=== PATIENT | male | born 1985 | race Caucasian/White ===

== ENCOUNTER 2020-05-01 08:59 | Outpatient (RCR) | payer BC, SELFPAY ==
[2020-05-01 09:17] VITALS: BMI 40.8
[2020-05-01 09:18] VITALS: BMI 40.8
== END 2020-07-26 12:46 | disposition home or self-care (01) ==
LOC: ANHDMC 08:59
PROVIDERS: PCP Internal Medicine; Visit Provider Nurse Practitioner
DX: E11.9 Type 2 diabetes mellitus without complications (principal); Z71.3 Dietary counseling and surveillance
CPT/HCPCS: 97802

== ENCOUNTER 2022-07-03 09:15 | Outpatient (CLI) | payer BC, SELFPAY ==
[2022-07-03 11:29] LABS: Liquefaction Semen Complete in 30 min. (<30 minutes); Semen Color Opaque (Grey-opaque); Semen Progressive Motility 10 % (>32); Semen Viscosity Not Increased (Not Increa.); Volume Semen 3 mL (1.5-5.0)
[2022-07-03 11:30] LABS: Semen Immotility 70 %; Semen Morphology Result to Follow; Semen Non-Progressive Motility 20 %; Semen Total Motility 30 (>40% (PM+NP)); Sperm Count 5.3 Mil/mL (60-150 million/mL)
[2022-07-07 10:39] LABS: Testosterone Total 354 ng/dL (250-1100)
[2022-07-08 22:03] LABS: Fructose, Semen 184 mg/dL (150-600)
== END 2022-07-03 09:16 | disposition home or self-care (01) ==
LOC: CHSLAB 09:22
PROVIDERS: PCP Hospitalist; Visit Provider Hospitalist
DX: N46.9 Male infertility, unspecified (principal)
CPT/HCPCS: 36415; 82671; 82757; 84403; 88160; 89320

== ENCOUNTER 2023-04-27 17:33 | Emergency (ER) | payer BC, SELFPAY ==
[2023-04-27 17:38] VITALS: BP 130/95; PULSE 104; RESP 20; TEMP 36.9; O2SAT 100
--- NOTE | 2023-04-27 17:40 | ED.URI ---
HPI - URI/Sore Throat General Chief Complaint: Upper Respiratory Infection Stated Complaint: congestion/can't hear Source: patient and RN notes reviewed History of Present Illness HPI Narrative: 37 yo M presents to urgent care with complaints of congestion, left ear pressure and pain and hard of hearing out of left ear, cough, body aches, and HUSTON. Reports sore throat. Reports nausea, loss of appetite, and diarrhea. Pt states these symptoms started on Thursday. Denies any fevers, chills, vomiting, or abdominal pain. Related Data Home Medications Medication Instructions Recorded Confirmed pantoprazole 40 mg tablet,delayed 40 mg PO DAILY 04/04/20 04/27/23 release bupropion HCl 300 mg 24 hr tablet, 300 mg PO DAILY 04/27/23 04/27/23 extended release clomiphene citrate 50 mg tablet 50 mg PO DAILY 04/27/23 04/27/23 (Clomid) dapagliflozin propaned 10 tablet PO DAILY 04/27/23 mg-metformin ER 1,000 mg tablet,ext rel 24hr (Xigduo XR) dulaglutide 3 mg/0.5 mL mg subcut 04/27/23 subcutaneous pen injector (Trulicity) ergocalciferol (vitamin D2) 1,250 1,250 mcg PO WEEKLY 04/27/23 04/27/23 mcg (50,000 unit) capsule ezetimibe 10 mg tablet 10 mg PO DAILY 04/27/23 04/27/23 levothyroxine 25 mcg tablet 25 mcg PO DAILY 04/27/23 04/27/23 lisdexamfetamine 50 mg capsule mg 04/27/23 (Vyvanse) montelukast 10 mg tablet 10 mg PO DAILY 04/27/23 04/27/23 pantoprazole 40 mg tablet,delayed mg PO 04/27/23 release sildenafil (pulm.hypertension) 20 20 mg PO DIRECTED PRN 04/27/23 04/27/23 mg tablet Hypertension Allergies Allergy/AdvReac Type Severity Reaction Status Date / Time cefaclor Allergy Unknown hives Verified 04/27/23 17:42 levofloxacin [From Levaquin] Allergy Joint Pain Verified 04/27/23 17:42 Review of Systems Review of Systems: Pertinent positives and pertinent negatives per HPI. [facility] Past Medical History Medical History (Updated 04/27/23 @ 17:51 by Odalys Sapp APRN) Alcoholic pancreatitis Allergies Anxiety Depression Diabetes GERD (gastroesophageal reflux disease) Headache, migraine HTN (hypertension) Sleep apnea Vasculitis Family History Family History (Updated 04/04/20 @ 08:14 by Justine Bowser [facility]) Mother Rheumatoid arthritis Scleroderma Social History Social History (Updated 04/04/20 @ 08:03 by Justine Bowser [facility]) Smoking status: Former smoker Alcohol intake: former Gender identity (if verbalized by the patient): Male Spiritual care concerns: No Comments At the time of my signature, I reviewed and agree with the nursing past medical, surgical, social, and family history. There is no relevant family history pertinent to the patient complaint. Exam Narrative: GENERAL: This is a well-nourished, well-developed patient, in no apparent distress. HEAD: normocephalic, atraumatic. EYES: Sclera clear/white. Vision is grossly intact. EARS: External ears normal, auditory canals clear and without drainage, right TM normal without perforation. Left TM bulging and erythremic. NOSE:congested THROAT: Mucous membranes moist, posterior pharynx clear. NECK: Neck supple, non-tender without lymphadenopathy, masses or thyromegaly. CARDIOVASCULAR: Regular rate and rhythm without murmurs, gallops, or rubs. RESPIRATORY: Clear to auscultation. Breath sounds equal bilaterally. No wheezes, rales, or rhonchi. GASTROINTESTINAL: Abdomen soft, non-tender, nondistended. Bowel sounds are active. No hepato-splenomegaly, or palpable masses. No guarding. SKIN: warm, intact with no suspicious lesions or rash, good texture and turgor. NEURO: awake, alert, and oriented to person, place and time. There were no obvious focal neurologic abnormalities. Course Course Level of Care: Express Care Visit Vital Signs Vital signs: Reviewed MDM - URI/Sore Throat MDM Narrative Medical decision making narrative: Take antibiotics as directed. May given ibuprofen and/or Tylenol as needed for
[2023-04-27 17:49] VITALS: BP 130/95; PULSE 104; RESP 20; TEMP 36.9; O2SAT 100
== END 2023-04-27 18:01 | disposition home or self-care (01) ==
PROVIDERS: Emergency Provider Nurse Practitioner Family; PCP Hospitalist
DX: B34.9 Viral infection, unspecified (principal); H66.92 Otitis media, unspecified, left ear; J32.9 Chronic sinusitis, unspecified; E11.9 Type 2 diabetes mellitus without complications; K21.9 Gastro-esophageal reflux disease without esophagitis; I10 Essential (primary) hypertension; F41.9 Anxiety disorder, unspecified; F32.A Depression, unspecified
CPT/HCPCS: 99213; G0463

== ENCOUNTER 2024-11-28 14:28 | Emergency (ER) | payer BC, SELFPAY ==
[2024-11-28 14:39] VITALS: BP 157/107; PULSE 98; RESP 16; TEMP 37; O2SAT 99
--- NOTE | 2024-11-28 15:16 | ED_ITS ---
HPI - URI/Sore Throat General Chief Complaint: Upper Respiratory Infection Stated Complaint: Sinus Problem Time Seen by Provider: 11/28/24 15:16 Source: patient Mode of arrival: ambulatory Limitations: no limitations History of Present Illness HPI Narrative: 38-year-old male presents with complaint of sinus congestion, pressure, pain, sinus headaches, drainage for the past 2 weeks. Taking Mucinex D with some r elief. Reports left-sided maxillary sinus pain worse today. Feels fatigued and feverish. No coughing, chest pain or shortness of breath. All systems reviewed and negative except as noted above. Related Data Home Medications ?Medication ?Instructions ?Recorded ?Confirmed ?Last Taken ?Type pantoprazole 40 mg tablet,delayed 40 mg PO DAILY 04/04/20 11/28/24 Unknown History release bupropion HCl 300 mg 24 hr tablet, 300 mg PO DAILY 04/27/23 11/28/24 Unknown History extended release clomiphene citrate 50 mg tablet 50 mg PO DAILY 04/27/23 11/28/24 Unknown History (Clomid) dapagliflozin propaned 10 tablet PO DAILY 04/27/23 Unknown History mg-metformin ER 1,000 mg tablet,ext rel 24hr (Xigduo XR) dulaglutide 3 mg/0.5 mL mg subcut 04/27/23 Unknown History subcutaneous pen injector (Trulicity) ergocalciferol (vitamin D2) 1,250 1,250 mcg PO WEEKLY 04/27/23 11/28/24 Unknown History mcg (50,000 unit) capsule ezetimibe 10 mg tablet 10 mg PO DAILY 04/27/23 11/28/24 Unknown History levothyroxine 25 mcg tablet 25 mcg PO DAILY 04/27/23 11/28/24 Unknown History lisdexamfetamine 50 mg capsule mg 04/27/23 Unknown History (Vyvanse) montelukast 10 mg tablet 10 mg PO DAILY 04/27/23 11/28/24 Unknown History pantoprazole 40 mg tablet,delayed mg PO 04/27/23 Unknown History release sildenafil (pulm.hypertension) 20 20 mg PO DIRECTED PRN 04/27/23 11/28/24 Unknown History mg tablet Hypertension Allergies Allergy/AdvReac Type Severity Reaction Status Date / Time cefaclor Allergy Unknown hives Verified 04/27/23 17:42 levofloxacin (From Levaquin) Allergy Joint Pain Verified 04/27/23 17:42 Review of Systems Review of Systems: CONSTITUTIONAL: Denies fever, chills, or sweats. EYES: Denies visual changes, redness, or discharge. ENT: Reports rhinorrhea, congestion, sinus pressure, postnasal drainage. Denies sore throat, or otalgia. CARDIOVASCULAR: Denies chest pain, palpitations, or edema. RESPIRATORY: Denies cough or dyspnea. GASTROINTESTINAL: Denies abdominal pain, nausea, vomiting, or diarrhea. GENITOURINARY: Denies dysuria or hematuria. SKIN: Denies rash or itching. MUSCULOSKELETAL: Denies back pain, joint pain, or myalgia. NEUROLOGIC: Denies headache, numbness, or weakness. PSYCHIATRIC: Denies anxiety or depression. All other systems reviewed are negative, except as documented in HPI. [facility] Past Medical History Medical History (Updated 11/28/24 @ 15:23 by Teresa Pham NP) HTN (hypertension) Diabetes Headache, migraine Allergies Alcoholic pancreatitis Anxiety Depression GERD (gastroesophageal reflux disease) Sleep apnea Vasculitis Family History Family History (Updated 04/04/20 @ 08:14 by Justine Bowser [facility]) Mother Rheumatoid arthritis Scleroderma Social History Social History (Updated 04/04/20 @ 08:03 by Justine Bowser [facility]) Smoking status: Former smoker Alcohol intake: former Gender identity (if verbalized by the patient): Male Spiritual care concerns: No Comments At time of signature, agree with nursing past medical, surgical, social and family history. There is no relevant family history pertinent to the presenting complaint. Exam Narrative: GENERAL: This is a well-nourished, well-developed patient, in no apparent distress. HEAD: normocephalic, atraumatic. EYES: PERRL. Sclera clear/white. Vision is grossly intact. EARS: External ears normal, auditory canals clear and without drainage, fluid bilateral TMs with dull light reflex without perforation. Hearing grossly intact. NOSE: External nose normal with purulent nasal drainage, erythema and swelling to bilateral nares. Left-sided maxillary sinus tenderness on palpation THROAT: Mucous membranes moist, purulent postnasal drainage NECK: Neck supple, non-tender without lymphadenopathy, masses or thyromegaly. CARDIOVASCULAR: Regular rate and rhythm without murmurs, gallops, or rubs. RESPIRATORY: Clear to auscultation. Breath sounds equal bilaterally. No wheezes, rales, or rhonchi. SKIN: warm, Dry, intact with no suspicious lesions or rash, good texture and turgor. NEURO: awake, alert, and oriented to person, place and time. There were no obvious focal neurologic abnormalities. EXTREMITIES: No joint tenderness, effusion, or edema noted. Course Course Level of Care: Express Care Visit Vital Signs Vital signs: Vital Signs Temperature 37.0 C 11/28/24 14:39 Pulse Rate 98 11/28/24 14:39 Respiratory Rate 16 11/28/24 14:39 Blood Pressure 157/107 H 11/28/24 14:39 Pulse Oximetry 99 11/28/24 14:39 Oxygen Delivery Room Air 11/28/24 14:39 Temperature 37.0 C 11/28/24 14:39 Pulse Rate 98 11/28/24 14:39 Respiratory Rate 16 11/28/24 14:39 Blood Pressure 157/107 H 11/28/24 14:39 Pulse Oximetry 99 11/28/24 14:39 Oxygen Delivery Room Air 11/28/24 14:39 reviewed MDM - URI/Sore Throat MDM Narrative Medical decision making narrative: will treat patient for bacterial sinusitis due to duration of symptoms and exam findings. Patient's blood pressure was elevated today. He states he just had it checked at doctor's office 1 week ago and was normal. He has no concerns that his blood pressure is elevated. Patient alert, nontoxic. Please be advised this is a medical document. It is intended for jbum-ts-vatz communication. It is written in medical language and may contain unfamiliar abb reviations or verbiage. Medical documents are intended to carry relevant information, facts as evident, and the clinical opinion of the practitioner at the time of the encounter. This report may have been done utilizing a voice recognition system. Attempts have been made to correct errors. However, there may be uncorrected grammatical, spelling, and recognition errors present. The file time of this note does not necessarily represent the time of service. Differential Diagnosis Differential diagnosis: Likely upper respiratory infection, sinusitis, viral infection and influenza Discharge Plan Discharge Clinical Impression: Acute bacterial sinusitis Patient Disposition: Home Condition: Stable Instructions: Antibiotic Form, Sinusitis (ED) Additional Instructions: take medications as prescribed. Continue taking Mucinex D as directed on packaging. Drink at least 64 oz water a day. See your doctor if symptoms not improving. Patient Language: Yemeni Prescriptions: New fluticasone propionate [Flonase Allergy Relief] 50 mcg/actuation spray,suspension 1 spray intranasal BID Qty: 16 0RF Rx Instructions: administer into each nostril loratadine [Claritin] 10 mg tablet 10 mg PO DAILY Qty: 30 0RF amoxicillin-pot clavulanate 875-125 mg tablet 1 tablet PO Q12H 10 Days Qty: 20 0RF methylprednisolone [Medrol (Mendel)] 4 mg tablets,dose pack See Rx Instructions PO .COMPLEX Qty: 21 0RF Rx Instructions: orally per package directions No Action clomiphene citrate [Clomid] 50 mg tablet 50 mg PO DAILY levothyroxine 25 mcg tablet 25 mcg PO DAILY pantoprazole 40 mg tablet,delayed release (DR/EC) PO montelukast 10 mg tablet 10 mg PO DAILY ergocalciferol (vitamin D2) 1,250 mcg (50,000 unit) capsule 1,250 mcg PO WEEKLY ezetimibe 10 mg tablet 10 mg PO DAILY bupropion HCl 300 mg tablet extended release 24 hr 300 mg PO DAILY sildenafil (pulm.hypertension) 20 mg tablet 20 mg PO DIRECTED PRN (Reason: Hypertension) lisdexamfetamine [Vyvanse] 50 mg capsule dapaglifloz propaned-metformin [Xigduo XR] 10-1,000 mg tablet, IR - ER, biphasic 24hr PO DAILY Trulicity 3 mg/0.5 mL pen injector SUBCUT fluticasone propionate [24 Hour Allergy Relief] 50 mcg/actuation spray,suspension 1 spray intranasal BID Qty: 16 0RF Rx Instructions: administer into each nostril albuterol sulfate 90 mcg/actuation HFA aerosol inhaler 2 puff inhalation QID PRN (Reason: shortness of breath or wheezing) Qty: 8.5 0RF amoxicillin-pot clavulanate 875-125 mg tablet 1 tablet PO Q12H 10 Days Qty: 20 0RF atorvastatin 10 mg tablet 10 mg PO DAILY Qty: 90 0RF pantoprazole 40 mg tablet,delayed release (DR/EC) 40 mg PO DAILY (DME) pen needle, diabetic [BD Ultra-Fine Amelia Pen Needle] 32 gauge x 5/32 needle See Rx Instructions .ROUTE .MEDSUPPLY Qty: 100 2RF Rx Instructions: Use to inject Victoza Follow-up/Referrals: Gallo,MD Martin [Primary Care Provider] - Time of Disposition: 15:24
--- OUTSIDE RECORDS SUMMARY | 2024-11-28 16:15 | XMS_ITS | Encounter Summary ---
Author Organization [facility] Address [address] [place] [address] Care Team Providers Care Billing Collections Specialist Name Role Phone Martin Holder MD Primary Care Provider [phone] Encounter Details Date Type Department Care Team (Late st Contact Info) Description 12/21/2018 Lab Requisition [facility] Care Pathology Lab [address] [place] [address] Kunal Leal MD [address] [place] [address] Acute kidney failure Social History Tobacco Use Types Packs/Day Years Used Date Smoking Tobacco: Former Cigarettes 0.5 15 0 11/16/2003 - 11/15/2018 Smokeless Tobacco: Never Alcohol Use Standard Drinks/Week Comments Yes 0 (1 standard drink = 0.6 oz pure alcohol) recently quit 11/15/18 use to drink 1-2 pints Sex and Gender Information Value Date Recorded Sex Assigned at Not on file Legal Sex Male 10:36 AM CDT Gender Identity Not on file Sexual Orientation Not on file documented as of this encounter Functional Status * Is person deaf or have serious hearing difficulty? Answer Date of Assessment Author No 12/21/2018 10:41 AM LILIT Antonieta Montiel RN * Is person blind or have serious difficulty seeing? Answer Date of Assessment Author No 12/21/2018 10:41 AM LILIT Antonieta Montiel RN * Does person have serious difficulty walking/climbing stairs? Answer Date of Assessment Author No 12/21/2018 10:41 AM CDT Antonieta Montiel RN * Does person have difficulty dressing/bathing? Answer Date of Assessment Author No 12/21/2018 10:41 AM CDT Antonieta Montiel RN * Does person have difficulty doing errands alone? Answer Date of Assessment Author No 12/21/2018 10:41 AM CDT Antonieta Montiel RN documented as of this encounter Mental Status * Does person have difficulty concentrating/remembering/making decisions? Answer Entry Date Author No 12/21/2018 10:41 AM CDT Antonieta Montiel RN documented in this encounter Plan of Treatment Not on file documented as of this encounter Procedures Procedure Name Priority Date/Time Associated Diagnosis Comments ELECTRON MICROSCOPY Routine 12/20/2018 2 :34 PM CDT Acute kidney failure documented in this encounter Results * ELECTRON MICROSCOPY (12/20/2018 2:34 PM CDT) Case Report Gynecologic Cytology Report Case: [id number] Authorizing Provider: Kunal Leal MD Collected: 12/20/2018 02:34 PM First Screen: Alireza Lovelace Received: 12/21/2018 08:14 AM Specimen: EM RENAL - U, Kidney, Left, There are two pieces, each is approx. 1 mm long. 12/28/2018 11:51 AM CDT [facility] Electron Microscopy Technical Summary # of Block(s) cut: 2 # of Glomeruli found: 1 # of Glomeruli photographed: 1 12/28/2018 11:51 AM CDT [facility] Embedded Images - EM 12/28/2018 11:51 AM CDT [facility] Pathology/Cytolo gy (Kidney, Left) 12/20/2018 2:34 PM CDT 12/21/2018 8:14 AM CDT us Kunal Leal MD LAB - PATHOLOGY/CYTOLOGY ORDER VINH Final Result [facility] [address] [place] [address], [facility] [phone] documented in this encounter Visit Diagnoses Diagnosis Acute kidney failure documented in this encounter Care Teams Billing Collections Specialist Relationship Specialty Start Date End Date [place] [address] PCP - General Family Medicine 07/08/22 documented as of this encounter
--- OUTSIDE RECORDS SUMMARY | 2024-11-28 16:15 | XMS_ITS | Clinical Summary ---
Author Organization [facility] Address [address] [address] [place] [address] Phone Care Team Providers Care Key Punch Operator Name Role Phone Nikki Lake MD Primary Care Provider [phone] Social History Tobacco Use Types Packs/Day Years Used Date Smoking Tobacco: Never Assessed Sex and Gender Information Value Date Recorded Sex Assigned at Not on file Legal Sex Male 12:20 PM CDT Gender Identity Not on file Sexual Orientation Not on file Plan of Treatment Health Maintenance Due Date Last Done Comments DTAP/TDAP/TD VACCINES (1 - Tdap) 2005 HEPATITIS B VACCINES (1 of 3 - 19+ 3-dose series) 2005 INFLUENZA VACCINE (#1) 2024 HPV VACCINES Aged Out No longer eligi ble based on patient's age to complete this topic PNEUMOCOCCAL VACCINE 0-49 YEARS Aged Out No longer eligible based on patient's age to complete this topic Insurance Care Teams Key Punch Operator Relationship Specialty Start Date End Date Nikki Lake MD [address] [id number] PCP - General Internal Medicine 01/10/14
--- OUTSIDE RECORDS SUMMARY | 2024-11-28 16:15 | XMS_ITS | Clinical Summary ---
Author Organization [facility] Address [address] [address] Phone Care Team Providers Care Manager Rental Name Role Phone Unavailable Primary Care Provider Unavailabl e Allergies Active Allergy Reactions Criticality Noted Date Comments Cefaclor Rash 12/05/2016 Levofloxacin Other (see Comments) 12/08/2018 tendonitis Medications furosemide (LASIX) 20 MG Tablet Take 1 Tab by mouth daily. 30 Tab 1 9 Active montelukast (SINGULAIR) 10 MG Tablet Take 1 Tab by mouth every evening. 90 Tab 3 9 Active predniSONE (DELTASONE) 20 MG Tablet TAKE 3 TABLETS BY MOUTH DAILY WITH BREAKFAST FOR 28 DAYS 0 9 Active lidocaine (LIDODERM) 5 % Patch 0 9 Active amLODIPine (NORVASC) 10 MG Tablet TK 1 T PO QD 11 9 Active metoprolol tartrate (LOPRESSOR) 25 MG Tablet TK 1 T PO BID 11 9 Active Insulin Pen Needle (PEN NEEDLES 31GX5/16 ) 31G X 8 MM Misc Use 4 /day for insulin pen 9 Active Glucose Blood (ONETOUCH VERIO) Strip Use to test blood glucose 3 x each day 9 Active NOVOLOG FLEXPEN 100 UNIT/ML Solution Pen-injector 4 9 Active LEVEMIR FLEXTOUCH 100 UNIT/ML Solution Pen-injector 4 9 Active ONETOUCH DELICA LANCETS FINE Misc Check blood sugar three times a day 9 Active pantoprazole (PROTONIX) 40 MG Tablet Delayed Response Take 1 Tab by mouth daily. 90 Tab 1 9 Active folic acid (FOLVITE) 1 MG Tablet Take 1 Tab by mouth daily. 90 Tab 1 9 Active thiamine ([facility] B-1) 100 MG TabletIndications :Alcohol withdrawal syndrome without complication (HCC) Take 1 Tab by mouth daily. 90 Tab 1 9 Active hydroCHLOROthiazi de 25 MG Tablet Take 1 Tab by mouth daily. 90 Tab 1 9 Active Active Problems Problem Noted Date Diagnosed Date Leukocytosis 01/14/2019 Overview (02/07/2019): Last Assessment & Plan: Present since end of November. Upon review of Care everywhere, patient was admitted to [facility] in the beginning of December. Patient had leukocytosis at the time which was suspected to be due to high-dose steroids along with inflammation due to vasculitis. Patient is leukocytosis has persisted since then. Patient was given empiric antibiotics, aztreonam and Flagyl, for possible sepsis however low suspicion for sepsis at this time after review of patient's records. Patient does have an elevated lactate which could be due to pancreatitis. Blood cultures were drawn and are currently in process. Will hold off on antibiotics at this time. 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 Patient had an A1c of 6.3 in 02/2018. A1c now is 10.7. Patient has been on high-dose prednisone for vasculitis. Patient's sugars peak at 763 but he is currently on insulin drip in the ICU. Will continue with insulin drip. Q.4 hours BMPs. Continue to monitor. Q.1 hour sugar checks. 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 CAN (acute kidney injury) 12/29/2018 Cavitary lesion of lung 12/29/2018 Granulomatosis with polyangiitis 12/29/2018 Hyponatremia 12/15/2018 Acute renal failure (ARF) 12/15/2018 Thrombocytosis 12/15/2018 Anemia 12/15/2018 Lung nodule 12/15/2018 Major depressive disorder, recurrent 08/06/2018 Episcleritis of both eyes 06/09/2018 Acute pancreatitis 02/19/[address] scan 02/19/2018 Hypomagnesemia 02/19/2018 Hyperglycemia 02/19/2018 Alcohol use disorder, mild, abuse 02/19/2018 Alcohol withdrawal syndrome without complication 01/28/2018 MIMA (obstructive sleep apnea) 10/21/2017 Morbid obesity with body mass index of 40.0-49.9 10/21/2017 Impaired glucose tolerance 05/25/2017 Hypogonadism in male 05/25/2017 Alcohol-induced acute pancreatitis 04/27/2017 High blood pressure 04/27/2017 Gastroesophageal reflux disease 04/27/2017 Anxiety 04/27/2017 Vitamin D deficiency 12/31/2013 Overview (02/07/2019): Vitamin D deficiency Immunizations Immunization Administration Dates Next Due Albumin IV 12/15/2018 Family History Medical History Relation Name Comments Diabetes Father Diabetes Maternal Grandfather Relation Name Status Comments Father Alive Maternal Grandfather Maternal Grandmother Alive history of afib Social History Tobacco Use Types Packs/Day Years Used Date Smoking Tobacco: Former Cigarettes 0.3 10 Smokeless Tobacco: Former Quit: 11/07/2018 Tobacco Cessation:Counseling Given: Yes Comments:pt states he has not smoked in one month Alcohol Use Standard Drinks/Week Comments Not Currently 0 (1 standard drink = 0.6 oz pure alcohol) pt states he has not drank in one month AUDIT-C Answer Date Recorded Frequency of Alcohol Consumption Never 12/08/2018 Average Number of Drinks Not on file 019 Frequency of Binge Drinking Not on file 11/16 PHQ-2 Answer Date Recorded PHQ-2 Score 12 04/20/2019 Sex and Gender Information Value Date Recorded Sex Assigned at Not on file Legal Sex Male 7:35 PM CDT Gender Identity Not on file Sexual Orientation Not on file Last Filed Vital Signs Vital Sign Reading Time Taken Comments Blood Pressure 112/80 02/07/2019 1:51 PM CDT Pulse 92 02/07/2019 1:51 PM CDT Temperature 37.3 C (99.2 F) 02/07/2019 1:51 PM CDT Respiratory Rate 20 02/07/2019 1:51 PM CDT Oxygen Saturation 98% 02/07/2019 1:51 PM CDT Inhaled Oxygen Concentration - - Weight 141.5 kg (312 lb) 02/07/2019 1:51 PM CDT Height 193 cm (6' 4 ) 02/07/2019 1:51 PM CDT Body Mass Index 37.98 02/07/2019 1:51 PM CDT Plan of Treatment Health Maintenance Due Date Last Done Comments Diabetes: Eye Exam 1986 Diabetes: Foot Exam 1986 Hepatitis C Virus (HCV) Screening 1986 TdaP Immunization 1986 Pneumococcal Immunization Combined (1 of 2 - PCV) 2005 Diabetes: Hemoglobin A1c 07/29/2019 019, 01/14/2019, 02/21/2018, Additional history exists Diabetes: Nephropathy Screening 01/28/2020 01/27/2019, 12/15/2018, 12/15/2018, Additional history exists Influenza Immunization (#1) 2024 SARS-COV-2 Immunization (2023- season) 2024 09/07/2021, 08/14/2021 Respiratory Syncytial Virus (RSV) Immunization (Adult) (1 - 1-dose 75+ series) 2061 Hepatitis B Immunization Completed 997, 09/09/1996, 07/29/1996 Meningococcal Immunization (ACWY) Aged Out No longer eligible based on patient's age to complete this topic Rotavirus Immunization Aged Out No lo nger eligible based on patient's age to complete this topic Procedures Procedure Name Priority Date/Time Associated Diagnosis Comments CMP (COMPREHENSIVE METABOLIC PANEL) Routine 01/27/2019 10:09 AM CDT Impaired glucose tolerance HEMOGLOBIN A1C W/ ESTIMATED GLUCOSE Routine 01/27/2019 10:09 AM CDT Impaired glucose tolerance from Last 3 Months or Most Recently Relevant to Health Maintenance Results * (ABNORMAL) HEMOGLOBIN A1C W/ ESTIMATED GLUCOSE (01/27/2019 10:09 AM CDT) HGB-A1C 11.5(H) 4.0 - 6.0 % 01/27/2019 12:49 PM CDT [facility] Est Average Glucose 283.4 mg/dL 01/27/2019 12:49 PM CDT [facility] Blood specimen (specimen) Venipuncture / Unknown 01/27/2019 10:09 AM CDT 01/27/2019 10:09 AM CDT Narrative [facility] - 01/27/2019 12:49 PM CDT HEMOGLOBIN A1C: DIABETIC PATIENTS: WELL-CONTROLLED: 6.2 - 7.0 INTERMEDIATE WELL-CONTROLLED: 7.0 - 9.0 POORLY-CONTROLLED: >9.0 us Lucy Doe PAC CHEMISTRY ORDERABLES Deanna castro Result [facility] [address] [place] [address] * (ABNORMAL) CMP (COMPREHENSIVE METABOLIC PANEL) (01/27/2019 10:09 AM CDT) SODIUM 128(L) 136 - 144 mmol/L 01/27/2019 1:54 PM CDT [facility] POTASSIUM 3.5 3.5 - 5.1 mmol/L 01/27/2019 1:54 PM CDT [facility] CHLORIDE 86(L) 100 - 110 mmol/L 01/27/2019 1:54 PM CDT [facility] CO2, VENOUS 25 22 - 32 mmol/L 01/27/2019 1:54 PM CDT [facility] ANION GAP 20.5(H) 8.0 - 20.0 mmol/L 01/27/2019 1:54 PM CDT [facility] GLUCOSE 475(HH) 70 - 99 mg/dL 01/27/2019 1:54 PM CDT [facility] BUN 25(H) 6 - 20 mg/dL 01/27/2019 1:54 PM CDT [facility] CREATININE, BLOOD 1.17 0.80 - 1.30 mg/dL 01/27/2019 1:54 PM [facility] BUN/CREATININE RATIO 21(H) 12 - 20 ratio 01/27/2019 1:54 PM [facility] TOTAL PROTEIN 6.5 6.0 - 8.3 g/dL 01/27/2019 1:54 PM [facility] ALBUMIN 4.0 3.5 - 5.2 g/dL 01/27/2019 1:54 PM [facility] Comment: The colormetric methods used for the determination of Albumin may lead to falsely elevated test results in patients suffering from renal failure or insufficiency due to interference with other proteins. A/G RATIO 1.6 1.0 - 2.0 01/27/2019 1:54 PM [facility] CALCIUM 9.5 8.9 - 10.3 mg/dL 01/27/2019 1:54 PM [facility] T BILI 0.3 <=1.2 mg/dL 01/27/2019 1:54 PM T [facility] SGOT (AST) 17 <=40 U/L 01/27/2019 1:54 PM [facility] SGPT (ALT) 13 <=41 U/L 01/27/2019 1:54 PM [facility] ALKALINE PHOSPHATASE 93 40 - 130 U/L 01/27/2019 1:54 PM [facility] GFR, EST. NONAFRICAN >60 >=60 01/27/2019 1:54 PM [facility] GFR, EST. >60 >=60 019 1:54 PM [facility] Comment: Creatinine Clearance is the preferred criteria for selecting drug dose adjustments in renally impaired patients. The GFR is provided as additional pertinent clinical information. GFR is reported in mL/min/1.73 sq m. Blood specimen (specimen) Venipuncture / Unknown 01/27/2019 10:09 AM CDT 01/27/2019 10:09 AM CDT Lucyrosalio Doe PAC CHEMISTRY ORDERABLES Deanna l Result [facility] [address] [place] [address] from Last 3 Months or Most Recently Relevant to Health Maintenance Insurance [employer] Advance Directives * Full Code (Latest Code Status on File) Date Activated Date Inactivated Comments 12/08/2018 7:07 PM 12/16/2018 3:07 AM CPR-Full Corin tment: FULL ARREST: Attempt Resuscitation/CPR wit intubation and mechanical ventilation. PRE-ARREST: Use entire range of life support measures to stabilize the patient. * Full Code Date Activated Date Inactivated Comments 02/20/2018 2:02 AM 02/21/2018 6:34 PM CPR-Full Treat ment: FULL ARREST: Attempt Resuscitation/CPR wit intubation and mechanical ventilation. PRE-ARREST: Use entire range of life support measures to stabilize the patient.
--- OUTSIDE RECORDS SUMMARY | 2024-11-28 16:16 | XMS_ITS | Clinical Summary ---
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 mL/min/1.73m2 *Relative to young adult level Estimated glomerular filtration rate is determined by the 2020 CKD-EPI equation recommended by the National Kidney Foundation (A Unifying Approach to GFR Estimation: Recommendations of the NKF-ASK Task Force on Reassessing the Inclusion of Race in Diagnosing Kidney Disease, JASN 2020). The CKD-EPI equation should not be used for patients with unstable renal function and has not been validated in children and those over 70. Current interpretive data was last reviewed 2021. Blood 07/25/2024 3:01 PM SPIRAL GEAR GENERATOR 07/25/2024 6:55 PM SPIRAL GEAR GENERATOR us Kris Bueno MD LAB BLOOD ORDERABLES Final Re sult Performing Organization Address [facility] Co de Phone Number [facility] Department [place] [address] * (ABNORMAL) Hemoglobin A1c (07/21/2024 10:23 AM SPIRAL GEAR GENERATOR) Hgb A1C 9.0(H) 4.0 - 5.6 % Comment:Testing performed by : [facility], [address] [place] [address], [place]., [address] Estimated Average Glucose 212 mg/dL SAMI DASILVA ([place]) Comment: The ADA recommends reporting an estimated Average Glucose (eAG) with all Hemoglobin A1c results using the equation derived from a study of 507 normal and diabetic adults. Minority populations were underrepresented and children were not included. (Diabetes Care 31:2719-2350, 2008). The eAG is not equivalent to a fasting glucose. Testing performed by: [facility], [address] [place] [address]., [address] Blood 07/21/2024 10:2 3 AM SPIRAL GEAR GENERATOR 07/21/2024 5:25 PM SPIRAL GEAR GENERATOR us Martin Holder MD LAB BLOOD ORDERABLES Deanna castro Result SAMI DASILVA ([place]) 1 [facility] Department [place] [address] * (ABNORMAL) Lipid panel (07/21/2024 10:23 AM SPIRAL GEAR GENERATOR) Cholesterol 236(H) 30 - 199 mg/dL Comment: Interpretive Data Ages < or = 19 years Acceptable: <170 mg/dL Borderline high: 170-199 mg/dL High: >or= 200 mg/dL Ages > or = 20 years Desirable: <200 mg/dL Borderline high: 200-239 mg/dL High: >or= 240 mg/dL Literature References: 1. Expert Panel on Integrated Guidelines for Cardiovascular Health and Risk Reduction in Children and Adolescents. Pediatrics 2011;128:S213 2. NCEP Expert Panel. Circulation 2004;110:227 Current Interpretive Data was last revised on 2018. Testing performed by: [facility], [address] [place] [address], [place]., [address] Triglycerides 239(H) <=149 mg/dL SAMI DASILVA ([place]) Comment: Interpretive Data Ages < or = 9 years Acceptable: <75 mg/dL Borderline high: 75-99 mg/dL High: >or= 100 mg/dL Ages 10 to 20 years Acceptable: <90 mg/dL Borderline high: 90-129 mg/dL High: >or= 130 mg/dL Ages > or = 20 years Desirable: <150 mg/dL Borderline high: 150-199 mg/dL High: 200-499 mg/dL Very high: >or= 499 mg/dL Literature References: 1. Expert Panel on Integrated Guidelines for Cardiovascular Health and Risk Reduction in Children and Adolescents. Pediatrics 2011;128:S213 2. NCEP Expert Panel. Circulation 2004;110:227 Current Interpretive Data was last revised on 2018. Testing performed by: [facility], [address] [place] [address]., [address] HDL 51 >=40 mg/dL SAMI DASILVA ([place]) Comment: Interpretive Data Ages < or = 19 years Acceptable: >45 mg/dL Borderline low: 40-45 mg/dL Low: <40 mg/dL Ages > or = 20 years Desirable: >or= 60 mg/dL Low: <40 mg/dL Literature References: 1. Expert Panel on Integrated Guidelines for Cardiovascular Health and Risk Reduction in Children and Adolescents. Pediatrics 2011;128:S213 2. NCEP Expert Panel. Circulation 2004;110:227 Current Interpretive Data was last revised on 2018. Testing performed by: [address] [address] LDL, calculated 142(H) <=129 mg/dL SAMI DASILVA ([place]) Comment: Interpretive Data Ages < or = 19 years Acceptable: <110 mg/dL Borderline high: 110-129 mg/dL High: >or= 130 mg/dL Ages > or = 20 years Optimal: <100 mg/dL Near optimal: 100-129 mg/dL Borderline high: 130-159 mg/dL High: >160 mg/dL Calculated using the Prateek LDL-C estimating equation. This equation was implemented on 2024. Prior to this date LDL-C was estimated using the Friedewald equation. Literature References: 1. Expert Panel on Integrated Guidelines for Cardiovascular Health and Risk Reduction in Children and Adolescents. Pediatrics 2011;128:S213 2. NCEP Expert Panel. Circulation 2004;110:227 3. Prateek Brownlee et al. TRAVON Cardiol. 2020 December 15;5(5):540-548. doi: 10.1001/jamacardio.2020.0013 Current Interpretive Data was last revised on 2024. Testing performed by: [address] [address] Non-HDL Cholesterol 185 mg/dL [facility] ([place]) Comment: Interpretive Data Ages < or = 19 years Acceptable: <120 mg/dL Borderline high: 120-144 mg/dL High: >145 mg/dL Ages > or = 20 years When triglycerides are >200 mg/dL, Non-HDL cholesterol is a secondary target of therapy with treatment goals that are 30 mg/dL greater than the LDL cholesterol target. Literature References: 1. Expert Panel on Integrated Guidelines for Cardiovascular Health and Risk Reduction in Children and Adolescents. Pediatrics 2011;128:S213 2. NCEP Expert Panel. Circulation 2004;110:227 Current Interpretive Data was last revised on 2018. Testing performed by: [facility], [address] [place] [address]., [address] Chol/HDL ratio 5 ROCAEL Resendiz BROWN ([place]) Comment:Testing performed by : [facility], [address] [place] [address]., [address] Blood 07/21/2024 10:2 3 AM SPIRAL GEAR GENERATOR 07/21/2024 5:25 PM SPIRAL GEAR GENERATOR Martin Holder MD LAB BLOOD ORDERABLES Deanna l Result SAMI DASILVA ([place]) 1 [facility] Department of Laboratories [place] [id number] * Hepatitis C antibody Blood (06/17/2023 3:06 PM CDT) Hep C Ab NON-REACTI VE NON-REACT TERRY [facility] Comment: HCV antibody was non-reactive. There is no laboratory evidence of HCV infection. In most cases, no further action is required. However, if recent HCV exposure is suspected, a test for HCV RNA (test code 65089) is suggested. For additional information please refer to http://education.Markafoni.Pro[employer]er [employer]/faq/FCF11i1 (This link is being provided for informational/ educational purposes only.) Blood 06/17/2023 3:06 PM CDT 06/17/2023 3:07 PM CDT Narrative [facility] - 06/18/2023 2:50 PM CDT FASTING:NO FASTING: NO us Dio Chu MD LAB MICROBIOLOGY - GENERAL ORDERABLES Final Result [facility] [address] [id number] from Last 3 Months or Most Recently Relevant to Health Maintenance Insurance [employer] [facility] [place] [employer] [place] Advance Directives For more information, please contact: [phone] * Full Code (Latest Code Status on File) Date Activated Date Inactivated Comments 05/22/2021 6:49 AM 05/22/2021 11:13 PM * Full Code Date Activated Date Inactivated Comments 05/22/2021 1:47 AM 05/22/2021 6:49 AM * Full Code Date Activated Date Inactivated Comments 10/13/2019 12:24 PM 10/16/2019 3:05 PM * Full Code Date Activated Date Inactivated Comments 01/14/2019 3:51 PM 01/21/2019 12:49 AM * Full Code Date Activated Date Inactivated Comments 08/31/2018 5:44 PM 09/03/2018 2:49 PM Care Teams Rail Detector Car Operator Relationship Specialty Start Date End Date Martin Holder MD [address] [place] [address] PCP - General Family Medicine 04/07/22
--- OUTSIDE RECORDS SUMMARY | 2024-11-28 16:16 | XMS_ITS | Referral Summary ---
Author Organization [facility] Address [address] [place] [address] Care Team Providers Care Cleaner Furniture Name Role Phone Martin Holder MD Primary Care Provider [phone] Encounters Date Type Department Care Team Description 09/13/2024 Telephone [facility] [address] [place] [address] Martin Holder MD Authorization/Certifica tion from Last 3 Months Allergies Active Allergy Reactions Criticality Noted Date [...] total) by mouth every morning 30 capsule Active dextroamphetamin e-amphetamine XR (ADDERALL XR) 30 mg 24 hr capsule Take 1 capsule (30 mg total) by mouth every morning 30 capsule Active dextroamphetamin e-amphetamine (ADDERALL) 20 mg tablet Take 1 tablet (20 mg total) by mouth daily after lunch 30 tablet Active Mounjaro 10 mg/0.5 mL pen injector [...] 09/01/2023 Assessment & Plan (07/22/2024 10:36 AM CASHIER CREDIT): Increased stress at work, child at home; stressors Will continue Valium 5 mg p.r.n. Assessment & Plan (01/08/2024 4:29 PM CDT): Not well controlled, has been having worsening stressors at work; increase turnover responsibilities Continue diazepam 5 mg q.6 hours Assessment & Plan (09/01/2023 12:28 PM CASHIER CREDIT): Not well controlled; worsening; patient reports multiple [...] 04/03/2022 Assessment & Plan (07/22/2024 10:36 AM CASHIER CREDIT): Stable, not well controlled; patient reports difficulty [...] afternoon Assessment & Plan (09/01/2023 12:28 PM CASHIER CREDIT): Stable, well controlled; patient reports some lack of focus, though likely caused by anxiety Continue Vyvanse 50 mg daily Assessment & Plan (01/20/2023 11:31 AM CDT): Not well controlled, has been on medications since September; continues to have difficulty with concentration focus Continue Adderall 30 mg daily Assessment & Plan (10/02/2022 5:05 PM CASHIER CREDIT): Not well controlled, had good relief with Vyvanse, but medicines too expensive Limited relief with current dose of Adderall Increase Adderall to 20 mg daily; continue to adjust medicine based upon patient response Assessment & Plan (07/01/2022 3:54 PM CASHIER CREDIT): Stable, generally improving; improved ability to complete work and feels more on track with loss wandering thoughts Continue Vyvanse 50 mg daily Assessment & Plan (06/22/2022 10:38 AM CASHIER CREDIT): Stable, good relief in morning, with symptoms [...] 12/13/2021 Assessment & Plan (07/22/2024 10:36 AM CASHIER CREDIT): Not well controlled; patient reports about 20 [...] changes Assessment & Plan (09/01/2023 12:27 PM CASHIER CREDIT): Stable, patient has been working on weight [...] weekly Assessment & Plan (10/02/2022 5:04 PM CASHIER CREDIT): Weight is stable, patient has been working on decreasing portion size, no current exercise Encouraged patient to begin to work towards 30 minutes moderate intensity activity 5 days per week Assessment & Plan (06/22/2022 10:38 AM CASHIER CREDIT): Stable, not well controlled; weight is stable, [...] 06/18/2021 Assessment & Plan (09/01/2023 12:27 PM CASHIER CREDIT): Follows with Rheumatology; gets regular infusion; continues to have some discomfort in bilateral hands; continue to monitor COVID 05/24/2021 Cavitary lesion of lung 05/22/2021 Assessment & Plan (05/22/2021 6:56 AM CDT): With history of fungal infection. Patient states he was treated with antifungal medications in 2018. Has since grown in size. Awaiting for pulmonology evaluation. Will order sputum culture. Type 2 diabetes mellitus, [facility] long-term current use of insulin 05/22/2021 Assessment & Plan (07/22/2024 10:35 AM CASHIER CREDIT): Not well controlled, worsening; A1c increased to [...] available Assessment & Plan (09/01/2023 12:26 PM CASHIER CREDIT): Not well controlled; last A1c was 8.4; [...] daily Assessment & Plan (10/02/2022 5:03 PM CASHIER CREDIT): Stable, A1c slightly above target 7.2; does not routinely check home blood sugars Continue Trulicity 3 mg weekly, Xigduo 10-1000 mg daily Assessment & Plan (07/01/2022 3:52 PM CASHIER CREDIT): Stable, generally well controlled last A1c was 7.2; continue to encourage low-carbohydrate diet; continue Ozempic 1 mg weekly, Xigduo 10-1000 mg daily Assessment & Plan (06/22/2022 10:37 AM CASHIER CREDIT): Stable, improving; last A1c was 7.2, improved [...] 05/22/2021 Assessment & Plan (07/22/2024 10:35 AM CASHIER CREDIT): Stable, not well controlled, LDL above goal; patient reports recent dietary changes in weight gain secondary to increased stress at home and work Continue atorvastatin 10 mg daily, Zetia 10 mg daily Assessment & Plan (01/08/2024 4:28 PM CDT): Stable, well controlled, LDL at goal, elevated triglycerides Continue Zetia 10 mg daily Assessment & Plan (09/01/2023 12:27 PM CASHIER CREDIT): Stable, well controlled; LDL at goal, the patient has elevated triglycerides; not currently taking Zetia due to cost Continue to monitor; if triglycerides remain elevated; may switch to fibrate therapy to help with triglycerides management Assessment & Plan (04/03/2023 2:28 PM CDT): Stable, tolerating medication well Continue Zetia 10 mg daily, Vascepa 2 g b.i.d. Assessment & Plan (07/01/2022 3:53 PM CASHIER CREDIT): LDL target for type 2 diabetes, but triglycerides are elevated Continue nexLizet at 180-10 mg, Vascepa 2 g b.i.d. Assessment & Plan (06/22/2022 10:36 AM CASHIER CREDIT): Stable, lipids at target with high triglycerides Continue Nexlizet daily Assessment & Plan (05/20/2022 4:17 PM CDT): Stable, continued Nexlizet and Vascepa for management Assessment & Plan (05/22/2021 6:50 AM CDT): Patient is on nexlizet and vascepa which are non formulary Alcohol dependence in remission 10/13/2019 Assessment & Plan (10/02/2022 5:06 PM CASHIER CREDIT): Stable, well controlled; no use of alcohol since last visit Continue to monitor; continue Vivitrol every 30 days Assessment & Plan (07/01/2022 3:54 PM CASHIER CREDIT): Stable, well controlled; remains alcohol free Assessment & Plan (06/22/2022 10:38 AM CASHIER CREDIT): Stable, well controlled; patient reports no use of any alcohol since 2021 Continue with Vivitrol monthly Assessment & Plan (05/20/2022 4:20 PM CDT): Stable, well controlled; patient reports decreased use of alcohol Continue Vivitrol injections every 30 days Assessment & Plan (04/03/2022 4:39 PM CDT): Stable, well controlled; [facility]; the [...] daily Assessment & Plan (10/02/2022 5:04 PM CASHIER CREDIT): Stable, generally well controlled, TSH at target Will recheck TSH given patient's concerns regarding energy levels Continue levothyroxine 25 mcg daily, adjust based upon TSH results Assessment & Plan (06/22/2022 10:37 AM CASHIER CREDIT): Stable, well controlled; TSH at target Continue [...] (01/14/2019 10:49 PM CDT): Patient follows with [facility] Rheumatology. He just completed 4 doses [...] of Care everywhere, patient was admitted to [facility] in the beginning of December. Patient had [...] alcohol abuse and has been admitted to [facility] as recently as August 2018. From review [...] 12/31/2013 020 Overview (11/21/2016): Vitamin D deficiency Immunizations Immunization Administration Dates Next Due BCG 12/15/2018 Hep B, Adolescent or Pediatric 12/30/1996,1996,07/29/1996 Influenza, Unspecified 12/31/2023(Deferr ed: Patient Refused),09/01/2023(Deferred: Patient Refused),05/18/2023(Deferred: Patient Refused),10/02/2022(Deferred: Patient Refused),04/17/2022(Deferred: Patient Refused),12/15/2018 Social History Tobacco Use Types Packs/Day Years [...] on file Legal Sex Male 7:10 PM CASHIER CREDIT Gender Identity Male 02/25/2023 10:46 AM CDT Sexual Orientation Not on file Last Filed Vital Signs Vital Sign Reading Time Taken Comments Blood Pressure 150/97 08/01/2024 8:23 AM CASHIER CREDIT Pulse 89 08/01/2024 8:23 AM CASHIER CREDIT Temperature 36.6 C (97.8 F) 08/01/2024 8:23 AM CASHIER CREDIT Respiratory Rate 14 08/01/2024 8:23 AM CASHIER CREDIT Oxygen Saturation 100% 08/01/2024 8:46 AM CASHIER CREDIT Inhaled Oxygen Concentration - - Weight 129 kg (284 lb 6.4 oz) 07/25/2024 2:03 PM CASHIER CREDIT Height 190.5 cm (6' 3 ) 07/25/2024 2:03 PM CASHIER CREDIT Body Mass Index 35.55 07/25/2024 2:03 PM CASHIER CREDIT Plan of Treatment Not on file Procedures Procedure Name Priority Date/Time Associated Diagnosis Comments ALBUMIN CREATININE RATIO, URINE Routine 07/25/2024 3:08 PM CASHIER CREDIT Type 2 diabetes mellitus without complication, without long-term current use of insulin (HCC) EGFR Routine 07/25/2024 3:01 PM CASHIER CREDIT Vasculitis ANCA-associated vasculitis (HCC) HEMOGLOBIN A1C Routine 07/21/2024 10:23 AM CASHIER CREDIT Type 2 diabetes mellitus without complication, without long-term current use of insulin (HCC) LIPID PANEL Routine 07/21/2024 10:23 AM CASHIER CREDIT Type 2 diabetes mellitus without complication, without long-term current use of insulin (HCC) HEPATITIS C ANTIBODY Routine 06/17/2023 3:06 PM CDT Routine screening for STI (sexually transmitted infection) from Last 3 Months or Most Recently Relevant to Health Maintenance Results * Albumin Creatinine Ratio, Urine (07/25/2024 3:08 PM CASHIER CREDIT) Albumin Ur 15.1 mg/L Comment: Interpretive Data No reference range established. Current interpretive data was last revised 2018. Creatinine Ur 232.8 mg/dL [facility] Comment: Interpretive Data No reference range established. Current interpretive data was last revised 2018. Albumin Creatinine Ratio, Ur 6 1 - 29 mg/g [facility] Urine 07/25/2024 3:08 PM CASHIER CREDIT 07/25/2024 6:18 PM CASHIER CREDIT us Martin Holder MD LAB URINE ORDERABLES Deanna l Result Performing Organization Address [facility] Co de Phone Number [facility] Department [place] [address] * eGFR (07/25/2024 3:01 PM CASHIER CREDIT) Pathologist [facility] eGFR >90 >=60 mL/min/1. 73 m2 Comment: [...] of Race in Diagnosing Kidney Disease, JASN 202). The CKD-EPI equation should not be used for patients with unstable renal function and has not been validated in children and those over 70. Current interpretive data was last reviewed 2021. Blood 07/25/2024 3:01 PM CASHIER CREDIT 07/25/2024 6:55 PM CASHIER CREDIT us Kris Bueno MD LAB BLOOD ORDERABLES Final Re sult Performing Organization Address [facility] Co de Phone Number [facility] Department [place] [address] * (ABNORMAL) Hemoglobin A1c (07/21/2024 10:23 AM CASHIER CREDIT) Hgb A1C 9.0(H) 4.0 - 5.6 % Comment:Testing performed by : [facility], [address] [place] [address]., [address] Estimated Average Glucose 212 mg/dL SAMI DASILVA ([place]) Comment: The ADA recommends reporting an estimated Average Glucose (eAG) with all Hemoglobin A1c results using the equation derived from a study of 507 normal and diabetic adults. Minority populations were underrepresented and children were not included. (Diabetes Care 31:2817-5935, 2008). The eAG is not equivalent to a fasting glucose. Testing performed by: [facility], [address] [place] [address]., [address] Blood 07/21/2024 10:2 3 AM CASHIER CREDIT 07/21/2024 5:25 PM CASHIER CREDIT us Martin Holder MD LAB BLOOD ORDERABLES Deanna castro Result SAMI DASILVA ([place]) 1 [facility] Department [place] [address] * (ABNORMAL) Lipid panel (07/21/2024 10:23 AM CASHIER CREDIT) Cholesterol 236(H) 30 - 199 mg/dL Comment: [...] last revised on 2018. Testing performed by: [facility], [address] [place] [address], [place]., [address] Triglycerides 239(H) <=149 mg/dL SAMI DASILVA ([place]) [...] last revised on 2018. Testing performed by: [facility], [address] [place] [address]., [address] HDL 51 >=40 mg/dL SAMI DASILVA ([place]) [...] last revised on 2018. Testing performed by: [facility], [address] [place] [address]., [address] LDL, calculated 142(H) <=129 mg/dL SAMI DASILVA [...] last revised on 2024. Testing performed by: [facility], [address] [place] [address]., [address] Non-HDL Cholesterol 185 mg/dL SAMI DASILVA ([place]) Comment: Interpretive Data [...] last revised on 2018. Testing performed by: [address] [address] Chol/HDL ratio 5 ROCAEL DASILVA ([place]) Comment:Testing performed by : [address] [address] Blood 07/21/2024 10:2 3 AM CASHIER CREDIT 07/21/2024 5:25 PM CASHIER CREDIT Martin Holder MD LAB BLOOD ORDERABLES [facility] Result SAMI DASILVA ([place]) 1 [facility] Department of Laboratories [place], [place] [id number] * Hepatitis C antibody Blood (06/17/2023 3:06 PM CDT) Hep C Ab NON-REACTI VE NON-REACT TERRY [facility] Comment: HCV antibody was non-reactive. There is no laboratory evidence of HCV infection. In most cases, no further action is required. However, if recent HCV exposure is suspected, a test for HCV RNA (test code 05384) is suggested. For additional information please refer to http://education.Smokazon.com/faq/ZZV28r8 (This link is being provided for informational/ educational purposes only.) Blood 06/17/2023 3:06 PM CDT 06/17/2023 3:07 PM CDT Narrative [facility] - 06/18/2023 2:50 PM CDT FASTING:NO FASTING: NO Dio Chu MD LAB MICROBIOLOGY - GENERAL ORDERABLES Final Result [facility] [address] [place] [id number] from Last 3 Months or Most Recently Relevant to Health Maintenance Insurance [employer] BLUE ACCESS [place] Advance Directives For more information, please contact: [phone] * Full Code (Latest Code Status on [...] 5:44 PM 09/03/2018 2:49 PM Care Teams Cleaner Furniture Relationship Specialty Start Date End Date [place] [address] PCP - General Family Medicine 04/07/22
--- OUTSIDE RECORDS SUMMARY | 2024-11-28 16:16 | XMS_ITS | Continuity of Care Document ---
Author Organization [facility] Address [address] [place] [address] [place] [address] Phone Care Team Providers Care Citrix Consultant Name Role Phone Romario Gann MD Unavailable Unavailable Procedures Procedure Date Eye Exam, New Patient Advance Directives Directive Yes / No Effective Date File Name No Information Encounters Encounter Description Practice Location Reason(s) For Visit Diagnoses Date Provider Providers Copied on Encounter [facility], [address], [place], [place], [id number], [place] tel:[phone] [facility] Professional No Information [address] [facility] [place], [id number], [place]. tel:[phone] Referring Provider: Nikki Lake MD, [address] [place], [address]. tel:[phone] Family History Family Member Type Diagnosis Age At Onset No Information Payers Payer name Insurance type Covered democrat ID Authoriza tion(s) No Information Social History Type Description Quantity Date Captured Comments Sex Male Smoking Status No Information Chief Complaint And Reason For Visit No Information Reason For Referral Reason For Referral No Information History Of Present Illness Encounter Date Complaint History Of Prese nt Illness No Information Functional Status Date Functional Assessmen t No Information Instructions Date Instruction Additional Infor mation No Information Assessments Type Assessment Date No Information Patient Care Teams Name Effective Dates (start - stop) Status Members No Information
--- OUTSIDE RECORDS SUMMARY | 2024-11-28 16:16 | XMS_ITS | Clinical Summary ---
Author Organization [facility] Address [address] [place] [address] Care Team Providers Care Pocket Cutter Name Role Phone Martin Holder MD Primary Care Provider [phone] Source Comments [facility],non-owned Affiliates and Associated Physician Practices is amultiple site organization consisting of ambulatory clinics and hospital sitesin [place], [place], [place] and [place]. This disclosure is being madepursuant to the Care Everywhere program and may not contain all information available regarding this patient. Last updated 18.[facility] Allergies Active Allergy Reactions Criticality Noted Date Comments Cefaclor Rash High Levofloxacin Other 12/08/2018 tendonitis Medications * This document contains information received from the source organization and may not represent a complete record from that organization. * Be aware that medications may not be up to date on this document. Alwaysverify current medications with the patient. propranolol (INDERAL) 10 MG tabletIndications :Anxiety Take 1 (one) tablet by mouth 2 times daily as needed for Hypertension Reasons: Feeling Anxious 60 tablet 2 11/01/19 Active naltrexone (VIVITROL) injectionIndicati ons:Alcohol Use Disorder,Alcoholi sm Inject 380 (three hundred eighty) mg into muscle every 30 days 01/05 Reasons: Abuse or Misuse of Alcohol, Excessive Use of Alcohol 1 Each 2 11/02/19 22 Active lisdexamfetamine (Vyvanse) 50 MG capsuleIndication s:Attention Deficit Hyperactivity Disorder Take 1 (one) capsule by mouth every morning Reasons: Attention Deficit Hyperactivity Disorder Active buPROPion XL 24hr (Wellbutrin-XL) 300 MG tabletIndications :Mood Disorder Take 1 (one) tablet by mouth every morning Reasons: Mood Disorder 90 tablet 12/11/19 Active Active Problems Problem Noted Date Diagnosed Date ADHD (attention deficit hyperactivity disorder) 09/08/2022 Nonadherence to medical treatment 11/01/2021 Alcohol use disorder, severe, dependence 022 MDD (major depressive disord er), recurrent episode, moderate 10/31/2021 Alcohol use disorder, moderate, dependence 11/10 Generalized anxiety disorder 11/11/2019 Granulomatosis with polyangiitis 12/29/2018 Acute renal failure (ARF) 12/15/2018 Anemia 12/15/2018 Hyponatremia 12/15/2018 Lung nodule 12/15/2018 Thrombocythemia 12/15/2018 Pneumonia due to infectious organism 12/14/2018 Essential hypertension 09/02/2018 Alcohol use disorder, severe, in early remission 08/06/2018 Major depressive disorder, recurrent 08/06/2018 Acute pancreatitis 08/06/[address] scan 02/19/2018 Hypomagnesemia 02/19/2018 Hyperglycemia 02/19/2018 Alcohol withdrawal syndrome without complication 01/28/2018 MIMA (obstructive sleep apnea) 10/21/2017 Morbid obesity with body mass index of 40.0-49.9 10/21/2017 Impaired glucose tolerance 05/25/2017 Hypogonadism in male 05/25/2017 Alcohol-induced acute pancreatitis 04/27/2017 High blood pressure 04/27/2017 Gastroesophageal reflux disease 04/27/2017 Anxiety 04/27/2017 Obstructive sleep apnea syndrome 01/14/2014 Overview (12/27/2018): Overview: MIMA - Obstructive sleep apnea Adiposity 12/31/2013 Overview (12/27/2018): Overview: Obesity (BMI 30-39.9) Alcoholism in family 12/31/2013 Overview (12/27/2018): Overview: Family history of alcoholism Cystic acne 12/31/2013 Overview (12/27/2018): Overview: Cystic acne Vitamin D deficiency 12/31/2013 Overview (12/27/2018): Overview: Vitamin D deficiency Rectal hemorrhage 12/31/2013 Overview (12/27/2018): Overview: Rectal bleeding CAN (acute kidney injury) Fever of unknown origin Splenic infarct Cavitary lesion of lung Edema, lower extremity Alcohol use disorder, mild, abuse Overview (01/12/2019): Overview: Alcohol consumption binge drinking Episcleritis of both eyes Leukocytosis 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) Resolved Problems Problem Noted Date Diagnosed Date Resolved Date Rash 01/13/2019 Immunizations Immunization Administration Dates Next Due BCG VACCINE HALF-WAY 12/15/2018 Family History Medical History Relation Name Comments Lupus Maternal Aunt Arthritis - Rheumatoid Mother 60 Scleroderma Mother 60 Relation Name Status Comments Father 59 Alive Maternal Aunt Mother 60 Alive Social History Tobacco Use Types Packs/Day Years Used Date Smoking Tobacco: Former Cigarettes 0.5 15 0 11/16/2003 - 11/15/2018 Smokeless Tobacco: Never Tobacco Cessation:Counseling Given: No Alcohol Use Standard Drinks/Week Comments Yes 0 (1 standard drink = 0.6 oz pure alcohol) a fifth every other weekend whiskey and vodka AUDIT-C Answer Date Recorded Q1: How often do you have a drink containing alcohol? Never 02/28/2022 Q2: How many drinks containi ng alcohol do you have on a typical day when you are drinking? Patient does not drink Q3: How often do you have si x or more drinks on one occasion? Never 02/28/2022 PHQ-2 Answer Date Recorded PHQ2 TOTAL SCORE 1 11/19/2021 Sex and Gender Information Value Date Recorded Sex Assigned at Not on file Legal Sex Male 10:36 AM CDT Gender Identity Not on file Sexual Orientation Not on file Last Filed Vital Signs Vital Sign Reading Time Taken Comments Blood Pressure 151/105 10/14/2022 11:25 AM APPRAISAL MANAGER referred to PCP Pulse 93 10/14/2022 11:25 AM APPRAISAL MANAGER Temperature 36.2 C (97.2 F) 07/08/2022 11:24 AM APPRAISAL MANAGER Respiratory Rate 18 10/14/2022 11:2 5 AM APPRAISAL MANAGER Oxygen Saturation 100% 07/08/2022 11: 24 AM APPRAISAL MANAGER Inhaled Oxygen Concentration - - Weight 140.6 kg (310 lb) 07/08/2022 9:2 2 AM APPRAISAL MANAGER Height 193 cm (6' 4 ) 07/08/2022 9:22 AM APPRAISAL MANAGER Body Mass Index 37.73 07/08/2022 9:22 AM APPRAISAL MANAGER Plan of Treatment Health Maintenance Due Date Last Done Comments DTAP/TDAP/TD VACCINES (1 - Tdap) 2005 HEPATITIS B VACCINE (1 of 3 - 19+ 3-dose series) 2005 COVID-19 VACCINE (3 - 2023- season) 2024 09/07/2021, 08/14/2021 DEPRESSION SCREENING 08/17/2024 08/13/2022, 07/16/2022, 07/08/2022, Additional history exists INFLUENZA VACCINE (Season Ended) 2025 12/15/2018 ZOSTER VACCINE (1 of 2) 2036 HIV SCREENING Completed 12/09/2018 HEPATITIS C SCREENING Completed 12/16/2018 HIB VACCINE Aged Out No longer eligi ble based on patient's age to complete this topic HPV VACCINE Aged Out No longer eligi ble based on patient's age to complete this topic MENINGOCOCCAL (Group B) VACCINE SHARED DECISION-MAKING Aged Out No longer eligible based on patient's age to complete this topic MENINGOCOCCAL GROUPS A/C/Y/W VACCINE Aged Out No longer eligible based on patient's age to complete this topic PNEUMOCOCCAL VACCINE Aged Out No long er eligible based on patient's age to complete this topic Procedures Procedure Name Priority Date/Time Associated Diagnosis Comments HEPATITIS C AB SCREEN RFLX NAAT QUANT STAT 12/16/2018 3:14 AM CDT from Last 3 Months or Most Recently Relevant to Health Maintenance Results * HEPATITIS C AB SCREEN RFLX NAAT QUANT (12/16/2018 3:14 AM CDT) Hepatitis C Antibody Non-react joesph Non-reac tive 12/16/2018 4:27 AM CDT [facility] Comment: Hepatitis C Antibody screen indicates no serologic evidence of past or current infection with Hepatitis C Virus. Patients with unexplained liver disease who are immunocompromised or suspected of having acute Hepatitis C infection may benefit from Nucleic Acid Test (RAFIQ) for Hepatitis C Viral RNA to confirm Hepatitis C status. Blood BLOOD SPECIMEN / Unknown Lab Venipuncture / Unknown 12/16/2018 3:14 AM CDT 12/16/2018 3:36 AM CDT Spencer Valadez MD LAB - CHEMISTRY ORDERABL ES Final Result [address] [phone] from Last 3 Months or Most Recently Relevant to Health Maintenance Insurance [employer] Member Subscriber Plan / Payer (Ef fective 2019-Present) Name:Reza Chavarria Relation to Subscriber:Self Name:Reza Chavarria Payer ID:Not on file Group ID:Not on file Type:Commercial Address: [address] Advance Directives * Full Code (Latest Code Status on File) Date Activated Date Inactivated Comments 12/20/2018 3:37 PM 12/21/2018 1:19 PM * Full Code Date Activated Date Inactivated Comments 12/16/2018 2:36 AM 12/20/2018 3:37 PM Care Teams Pocket Cutter Relationship Specialty Start Date End Date Martin Holder MD [address] [place] [address] PCP - General Family Medicine 07/08/22
--- OUTSIDE RECORDS SUMMARY | 2024-11-28 16:22 | XMS_ITS | Continuity of Care Document ---
Author Organization [facility] Address [address] [place] [address] [place] [address] Phone Care Team Providers Care Ropeman Name Role Phone Romario Gann MD Unavailable Unavailable Procedures Procedure Date Eye Exam, New Patient Advance Directives Directive Yes / No Effective Date File Name No Information Encounters Encounter Description Practice Location Reason(s) For Visit Diagnoses Date Provider Providers Copied on Encounter [facility], [address] [place], [place], [id number], [place] tel:[phone] [facility] No Information [address] [facility] [place], [id number], [place]. tel:[phone] Referring Provider: Nikki Lake MD, [address] [place], [address]. tel:[phone] Family History Family Member Type Diagnosis Age At Onset No Information Payers Payer name Insurance type Covered constitution party ID Authoriza tion(s) No Information Social History [...]
== END 2024-11-28 15:29 | disposition home or self-care (01) ==
PROVIDERS: Emergency Provider Nurse Practitioner Family; PCP Hospitalist
DX: J01.90 Acute sinusitis, unspecified (principal); Z87.891 Personal history of nicotine dependence; I10 Essential (primary) hypertension; E11.9 Type 2 diabetes mellitus without complications; Z79.84 Long term (current) use of oral hypoglycemic drugs; Z79.85 Long-term (current) use of injectable non-insulin antidiabetic drugs; K21.9 Gastro-esophageal reflux disease without esophagitis; F41.9 Anxiety disorder, unspecified; F32.A Depression, unspecified
CPT/HCPCS: 99213; G0463